=== PATIENT | female | born 2000 | race Caucasian/White ===

== ENCOUNTER 2025-06-05 16:36 | Emergency (ER) | payer BC ==
[~2025-06-05] VITALS: Ht 170.2 cm; Wt 66.0 kg
[2025-06-05 17:57] LABS: COLOR URINE YELLOW (YELLOW); GLUCOSE URINE NEGATIVE (NEGATIVE); KETONES URINE TRACE (NEGATIVE); LEUKOCYTE ESTERASE URINE TRACE (NEGATIVE); NITRITE URINE NEGATIVE (NEGATIVE); OCCULT BLOOD URINE NEGATIVE (NEGATIVE); PH URINE 8.0 (4.5-8.0); PROTEIN URINE TRACE (NEGATIVE); SPECIFIC GRAVITY URINE 1.029 (1.005-1.030); UROBILINOGEN URINE 1.0 E.U./dL (0.2-1.0)
[2025-06-05 18:01] VITALS: BP 123/86; PULSE 102; RESP 18; TEMP 36.6; O2SAT 99
[2025-06-05 18:08] LABS: CLARITY URINE HAZY (CLEAR)
[2025-06-05 18:09] LABS: BACTERIA URINE 1+; RBC URINE NONE SEEN /hpf (0-2); SQUAMOUS EPITHELIAL CELL URINE 2+ /lpf (RARE/1+); WBC URINE 0-2 /hpf (0-2)
[2025-06-05 18:10] LABS: MUCUS URINE TRACE /lpf (< = 2+)
== END 2025-06-05 21:18 | disposition left against medical advice (07) ==
LOC: ER 16:36
DX: R10.11 Right upper quadrant pain (principal)
CPT/HCPCS: 81003; 81025; 99281